=== PATIENT | male | born 1980 ===

== ENCOUNTER 2016-12-09 10:34 | Emergency (ER) | payer OTHER ==
[2016-12-09 10:41] VITALS: TEMP 97.9
[2016-12-09] MEDS ORDERED: Bacitracin 500 Units/gm Oint Foilpak UD TOP ONE (11:12)
--- NOTE | 2016-12-09 11:15 | C.PDOC ---
History Of Present Illness 36 y/o male presents to ED for evaluation of puncture wound to right plantar aspect of foot. Patient states he was at work and stepped on nail [employer] but removed nail before coming to the ED. Patient reports he was wearing shoes and had cleaned wound but came to ed for further evaluation. No other complaints at this time. Last Tetanus vaccine Unknown and is requesting vaccine. No change in sensation. No pain with ambulation. Time Seen by Provider: 12/09/16 11:06 Chief Complaint (Nursing): Lower Extremity Problem/Injury History Per: Patient History/Exam Limitations: no limitations Onset/Duration Of Symptoms: Hrs Current Symptoms Are (Timing): Still Present Past Medical History Reviewed: Historical Data, Nursing Documentation, Vital Signs Vital Signs: Last Vital Signs Temp 97.9 F 12/09/16 10:39 Pulse 81 12/09/16 12:36 Resp 16 12/09/16 12:36 BP 125/85 12/09/16 12:36 Pulse Ox 98 12/09/16 12:36 - Medical History PMH: No Chronic Diseases Surgical History: No Surg Hx Family History: States: No Known Family Hx - Social History Hx Alcohol Use: Yes Hx Substance Use: No - Immunization History Hx Tetanus Toxoid Vaccination: Yes (2014) Hx Influenza Vaccination: No Hx Pneumococcal Vaccination: No Review Of Systems Except As Marked, All Systems Reviewed And Found Negative. Gastrointestinal: Negative for: Nausea, Vomiting Musculoskeletal: Positive for: Foot Pain. Negative for: Leg Pain Skin: Negative for: Rash Neurological: Negative for: Weakness, Numbness Physical Exam - Physical Exam Appears: Non-toxic, No Acute Distress Skin: Warm, Dry, No Rash Head: Atraumatic, Normacephalic Eye(s): bilateral: Normal Inspection, EOMI Nose: Normal Oral Mucosa: Moist Neck: Normal ROM, Supple Chest: Symmetrical Respiratory: No Accessory Muscle Use Extremity: Normal ROM, Capillary Refill (<2 seconds), No Deformity, Other ( Puncture wound to plantar aspect of right foot. No active bleeding or discharge) Extremity: Bilateral: Normal ROM Pulses: Left Dorsalis Pedis: Normal, Right Dorsalis Pedis: Normal Neurological/Psych: Oriented x3, Normal Motor, Normal Sensation Gait: Steady ED Course And Treatment O2 Sat by Pulse Oximetry: 97 Progress Note: Patient refused xray of foot. Tetanus vaccine was given by RN. Wound was irrigated, cleansed and dressed . Discussed wound care and to follow up with PMD in 1-2 days for wound check. Instructed to return to ER if symtpoms persist or worsen. Disposition - Disposition Disposition: HOME/ ROUTINE Disposition Time: 11:13 Condition: STABLE Additional Instructions: Vaya a low mdico o la clnica en 2-5 byrd sin falta, para mas evaluacin. [place] los medicamentos nate indicado. Volver a la chantal de emergencia en cualquier momento si los sntomas persisten o empeoran. Prescriptions: Ciprofloxacin HCl [Cipro] 500 mg PO BID #14 tab Mupirocin 2% Ointment [Bactroban Ointment] 1 appl TP TID #1 tube Instructions: Puncture Wound (ED) Forms: [employer] (Japanese) Print Language: AZERI - Clinical Impression Clinical Impression: Puncture wound - PA / DIRECTOR [employer]IOINFORMAT[employer] / Resident Statement MD/DO has reviewed & agrees with the documentation as recorded. - Scribe Statement The provider has reviewed the documentation as recorded by the Scribjose francisco Conner All medical record entries made by the Scribe were at my direction and personally dictated by me. I have reviewed the chart and agree that the record accurately reflects my personal performance of the history, physical exam, medical decision making, and the department course for this patient. I have also personally directed, reviewed, and agree with the discharge instructions and disposition.
[2016-12-09] MEDS ORDERED: Bacitracin 500 Units/gm Oint Foilpak UD ONE (11:36)
[2016-12-09 12:38] VITALS: BP 125/85; PULSE 81; RESP 16
[2016-12-09 14:59] VITALS: O2SAT 97
== END 2016-12-09 12:36 | disposition home or self-care (01) ==
LOC: C.ER 10:34
DX: S91.331A Puncture wound without foreign body, right foot, initial encounter (principal); W45.0XXA Nail entering through skin, initial encounter; Y93.89 Activity, other specified; Y92.89 Other specified places as the place of occurrence of the external cause; Y99.0 Civilian activity done for income or pay; Z23 Encounter for immunization

== ENCOUNTER 2018-03-21 13:46 | Emergency (ER) | payer SELFPAY ==
[2018-03-21 13:58] VITALS: BMI 33.2
[2018-03-21 16:16] VITALS: BP 129/82; PULSE 98; RESP 20; TEMP 98; O2SAT 98
--- NOTE | 2018-03-21 16:43 | C.PDOC ---
History Of Present Illness 37 year old male presents to the ED for evaluation of throat pain and generalized body aches which began one day ago. Patient reports subjective fever, shortness of breath, chills, dry cough, decreased appetite and abdominal pain. Patient reports a tightness/hot feeling in his chest. He reports one episode of watery, non-bloody diarrhea yesterday. He deneis recent travel, illness, sick contacts. HPI: Influenza Time Seen by Provider: 03/21/18 14:29 Chief Complaint: Flu-like Symptoms History Per: Patient Exam Limitations: no limitations Past Medical History Reviewed: Historical Data, Nursing Documentation, Vital Signs Vital Signs: Last Vital Signs Temp 98 F 03/21/18 16:15 Pulse 98 H 03/21/18 16:15 Resp 20 03/21/18 16:15 BP 129/82 03/21/18 16:15 Pulse Ox 98 03/21/18 16:15 - Medical History PMH: No Chronic Diseases Surgical History: No Surg Hx Family History: States: Unknown Family Hx - Social History Hx Alcohol Use: Yes Hx Substance Use: No - Immunization History Hx Tetanus Toxoid Vaccination: Yes (2014) Hx Influenza Vaccination: No Hx Pneumococcal Vaccination: No Review Of Systems Constitutional: Positive for: Fever, Chills Respiratory: Positive for: Cough. Negative for: Sputum Gastrointestinal: Positive for: Abdominal Pain, Diarrhea Physical Exam - Physical Exam Appears: Non-toxic, No Acute Distress Skin: Normal Color, Warm, Dry Head: Atraumatic, Normacephalic Eye(s): bilateral: Other (conjunctival erythema ) Ear(s): Bilateral: Normal Nose: Normal, No Discharge Oral Mucosa: Moist Throat: Erythema (tonsillar ), No Exudate Neck: Supple Chest: Symmetrical, No Deformity, No Tenderness Cardiovascular: Rhythm Regular, No Murmur Respiratory: Normal Breath Sounds, No Rales, No Rhonchi, No Wheezing Extremity: Normal ROM, Capillary Refill (less than 2 seconds ) Neurological/Psych: Oriented x3, Normal Speech, Normal Cognition - ECG O2 Sat by Pulse Oximetry: 98 (on RA) Pulse Ox Interpretation: Normal - Progress ED Course And Treament: EKG ordered and reviewed. Tamiflu PO given. On reassessment, patient is resting comfortably, showing no signs of distress and is stable for discharge. Patient is advised to f/u with PMD withi 1-2 days for further evaluation. Disposition - Disposition Disposition: HOME/ ROUTINE Disposition Time: 16:40 Condition: STABLE Additional Instructions: Follow up with PMD within 1-2 days. Return to ED if feel worse. Prescriptions: Brompheniramine/Pseudoephed/Dm [Bromfed Dm Cough 118 ml] 10 ml PO Q4 #300 ml Fluticasone Propionate [Flonase] 1 spr NS BID #1 spr Ibuprofen [Motrin Tab] 600 mg PO Q8 #30 tab Oseltamivir Cap [Tamiflu] 75 mg PO BID #9 cap Instructions: Flu Forms: [employer] (Slovenian) - Clinical Impression Clinical Impression: Influenza - PA / [employer] / Resident Statement MD/DO has reviewed & agrees with the documentation as recorded. - Scribe Statement The provider has reviewed the documentation as recorded by the Scribe (Nellie Cornejo) All medical record entries made by the Scribe were at my direction and personally dictated by me. I have reviewed the chart and agree that the record accurately reflects my personal performance of the history, physical exam, medical decision making, and the department course for this patient. I have also personally directed, reviewed, and agree with the discharge instructions and disposition.
--- NOTE | 2018-03-23 05:52 | CARD ---
APPROVED REPORT Date of service: 03/21/2018 EKG Measurement Heart [id number] <Conclusion> Normal sinus rhythm Normal ECG
== END 2018-03-21 16:55 | disposition home or self-care (01) ==
LOC: C.ER 13:46
DX: J11.1 Influenza due to unidentified influenza virus with other respiratory manifestations (principal)